=== PATIENT | male | born 1955 | race Caucasian/White ===

== ENCOUNTER 2022-07-23 13:59 | Emergency (ER) | payer MEDICAID ==
[~2022-07-23] VITALS: Ht 170.2 cm; Wt 75.0 kg
[2022-07-23] MEDS ORDERED: SODIUM CHLORIDE 0.9% 1,000 ML IV ONE (14:30)
[2022-07-23 15:20] LABS: CHLORIDE 108 mEq/L (98-107); INR 1.1; PROTHROMBIN TIME 11.8 sec (9.6-11.0)
[2022-07-23 15:34] LABS: BASOPHILS % 0.9 % (0.0-2.0); EOSINOPHILS % 0.2 % (0.0-5.0); HEMATOCRIT. 36.4 % (42.0-52.0); HEMOGLOBIN. 11.9 g/dL (14.0-18.0); LYMPHOCYTES % 9.7 % (20.0-50.0); MEAN CORPUSCULAR HEMOGLOBIN 27.8 pg (28.0-32.0); MEAN CORPUSCULAR VOLUME 84.7 fL (80.0-94.0); MONOCYTES % 5.5 % (2.0-8.0); NEUTROPHILS % 83.7 % (40.0-76.0); PLATELET 438 x1000/uL (130-400); RED BLOOD CELL COUNT 4.29 mill/uL (4.7-6.1); RED CELL DISTRIBUTION WIDTH 16.9 % (11.6-14.6)
[2022-07-23] MEDS ORDERED: ENOXAPARIN 80MG/0.8ML SYR SUBCUT NR (20:21)
[2022-07-23] MEDS: ENOXAPARIN 40MG/0.4ML SYR SUBCUT NR ×2 (20:26→20:30)
[2022-07-23 23:31] VITALS: BP 129/74
== END 2022-07-23 23:39 | disposition short-term general hospital (02) ==
LOC: ER 13:59 → CANBEDREQ 07-24 10:06
DX: R55 Syncope and collapse (principal); Z85.6 Personal history of leukemia; Z20.822 Contact with and (suspected) exposure to COVID-19
CPT/HCPCS: 36415; 70450; 71045; 80053; 84484; 85025; 85610; 87426; 93005; 96360; 96361; 96372; 99285; C9803; J1650; J7030; Z7610